=== PATIENT | female | born 1995 | race Two or more races ===

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

== ENCOUNTER 2017-08-12 07:35 | Inpatient (IN) | payer OTHER ==
[2017-08-12] VITALS (34 sets, daily range): BP systolic 91–139; BP diastolic 49–81
[~2017-08-12] VITALS: Ht 160 cm; Wt 101.8 kg
[2017-08-12] MEDS ORDERED: PRENATAL TABLE1 EAC3 PO (08:38)
[2017-08-12 10:53] LABS: HEMATOCRIT 36.2 % (36.0-46.0); MCH 27.8 PG (29.0-34.0); MCHC 32.3 G/DL (30.0-36.0); MEAN PLAT.VOLUME 11.6 uM^3 (9.5-12.4); PLATELET COUNT 200 K/uL (156-360); RBC DIS.WIDTH-CV 13.2 % (11.8-14.6); RBC DIS.WIDTH-SD 40.4 % (39-53); RED BLOOD COUNT 4.21 M/uL (3.80-5.20); WHITE BLOOD COUNT 13.7 K/uL (4.1-10.2)
[2017-08-12 10:59] LABS: EOSINOPHIL (%) 0.1 % (0-5); IMMATURE GRANULOCYTE (%) 0.9 % (0.0-0.7); IMMATURE GRANULOCYTE COUNT 0.1 K/uL; INSTRUMENT ABS NEUTROPHIL CT 11.3 K/uL; LYMPHOCYTE COUNT 1.4 K/uL (1.0-2.8); MONOCYTE (%) 5.1 % (3-12); MONOCYTE COUNT 0.7 K/uL (0-0.8); NEUTROPHIL (%) 83.1 % (45-76); NEUTROPHIL COUNT 11.3 K/uL (1.8-6.4)
[2017-08-13] VITALS (17 sets, daily range): BP systolic 80–113; BP diastolic 42–65
[2017-08-13 06:25] LABS: EOSINOPHIL (%) 0 % (0-5); HEMATOCRIT 28.8 % (36.0-46.0); IMMATURE GRANULOCYTE COUNT 0.2 K/uL; INSTRUMENT ABS NEUTROPHIL CT 17.3 K/uL; LYMPHOCYTE COUNT 1.6 K/uL (1.0-2.8); MCH 27.1 PG (29.0-34.0); MCHC 32.3 G/DL (30.0-36.0); MEAN PLAT.VOLUME 11.1 uM^3 (9.5-12.4); MONOCYTE (%) 5.3 % (3-12); MONOCYTE COUNT 1.1 K/uL (0-0.8); NEUTROPHIL (%) 85.8 % (45-76); NEUTROPHIL COUNT 17.3 K/uL (1.8-6.4); PLATELET COUNT 225 K/uL (156-360); RBC DIS.WIDTH-CV 13.2 % (11.8-14.6); RBC DIS.WIDTH-SD 39.8 % (39-53); RED BLOOD COUNT 3.43 M/uL (3.80-5.20); WHITE BLOOD COUNT 20.2 K/uL (4.1-10.2)
[2017-08-14] MEDS ORDERED: IBUPROFEN800 MG PO (10:08)
== END 2017-08-14 11:30 | disposition home or self-care (01) | DRG 775 ==
LOC: LDRP-OP → 2WEST 07:36 → LDRP-OP 16:46 → 2WEST 21:15 → LDRP-OP 09-08 10:28
PROVIDERS: Advanced Practice Midwife
PROC: 3E0P3VZ Introduction of Hormone into Female Reproductive, Percutaneous Approach (ICD-10-PCS; principal; 2017-08-12)
PROC: 3E0P7VZ Introduction of Hormone into Female Reproductive, Via Natural or Artificial Opening (ICD-10-PCS; principal; 2017-08-12)
PROC: 0UQGXZZ Repair Vagina, External Approach (ICD-10-PCS; principal; 2017-08-12)
PROC: 10907ZC Drainage of Amniotic Fluid, Therapeutic from Products of Conception, Via Natural or Artificial Opening (ICD-10-PCS; principal; 2017-08-12)
PROC: 00HU33Z Insertion of Infusion Device into Spinal Canal, Percutaneous Approach (ICD-10-PCS; principal; 2017-08-12)
PROC: 10E0XZZ Delivery of Products of Conception, External Approach (ICD-10-PCS; principal; 2017-08-12)
PROC: 3E0S3BZ Introduction of Anesthetic Agent into Epidural Space, Percutaneous Approach (ICD-10-PCS; principal; 2017-08-12)
DX: O71.4 Obstetric high vaginal laceration alone (principal); D62 Acute posthemorrhagic anemia; O99.214 Obesity complicating childbirth; E66.9 Obesity, unspecified; Z3A.40 40 weeks gestation of pregnancy; Z37.0 Single live birth; D50.9 Iron deficiency anemia, unspecified; O99.02 Anemia complicating childbirth; O48.0 Post-term pregnancy; O77.0 Labor and delivery complicated by meconium in amniotic fluid; O76 Abnormality in fetal heart rate and rhythm complicating labor and delivery
CPT/HCPCS: 85025; C1755; J0595; J2405; J3010; J7120